=== PATIENT | female | born 1995 | race Two or more races ===

== ENCOUNTER 2017-04-22 18:40 | Inpatient (IN) | payer OTHER ==
[2017-04-22 19:08] VITALS: BMI 32.4
--- NOTE | 2017-04-22 19:33 | PDOC.LDHP ---
Labor and Delivery H&P Chief complaint: other (Patient arrives to L&D for "induction", but was not sent by a physician.) HPI: 21 yo G1 who states she is 41 weeks and 6 days with PNC at [facility] ("[facility] ") who states she came here for induction. She was not scheduled by any MD. Unclear why she left [place] to arrive here. No issues by her report but no record here. No CTX, no VB, no LOF, no Headaches HX Bipolar, anxiety, on no meds. HX "heart surgery" as a child (6 months) with no issues- saw cardiology this by her account. Current gestational age (weeks): 41 (6 days) Due date: 04/09/17 Grav: 1 Para: 0 Abnormal US findings: No (not known) Current medications: pre- vitamins Previous surgical history: other (infact cardiac repair (?)) Allergies/Adverse Reactions: Allergies Allergy/AdvReac Type Severity Reaction Status Date / Time No Known Allergies Allergy Verified 04/22/17 19:10 - Physical Exam Vital signs reviewed and normal: yes (BP 125/75) General: NAD, resting Heart: RRR FHT: category 1 (2 accels, mod variability.) Rafael Capo contractions every: irritability - Plan Plan: other (Assessment: 21 yo with gestation at 41 weeks 6 days by her account , no records here. Hx bipolar- no meds. No acute psch issues now. Plan: 1. all ob labs for our record 2. Attempting to find her clinic chart 3. Check cervix (pending) 4. I will order BPP and OB sono for asessment. As I do not have any of her medical records, I am not sure if induction is valid at this point. Unware of her dating criteria. Will await sono assessment for now.)
[2017-04-22 20:32] LABS: Syphilis Antibody Nonreactive (Nonreactive); Syphilis Antibody Index 0.03 S/CO (<1.00 Non-Reactive)
[2017-04-22] MEDS ORDERED: Lidocaine 1% (PF) 30 ML VIAL SC PRN (21:04)
[2017-04-22] MEDS ORDERED: Ibuprofen 800 MG TAB PO PRN (21:04)
[2017-04-22] MEDS ORDERED: Promethazine HCl 25 MG/ML VIAL IM PRN (21:04)
[2017-04-22] MEDS ORDERED: HYDROcodone/Acetaminophen 5/325 mg Tablet PO PRN ×2 (21:04)
[2017-04-22] MEDS ORDERED: LR / Pitocin 40 units/1000 ml 1,000 ML IV PRN (21:04)
--- NOTE | 2017-04-22 21:12 | PDOC.EVN ---
Event Note - Event Note Event Note: L&D follow up after sono: 2109 INDUCTION NOTE: Spoke with sono tech- EFW 3900, cephalic, Largest pocket 4x2cm. Placenta with small calcifications. BPP was 8. Cephalic. I performed a cervical exam: cervix 03/16/2 Gynecoid pelvis. After detailed review of her care (verbal with patient), she told me she had a first trimester sono which gave her the due date we are using. That would give her sure criteria. I discussed dating criteria with her and as is she 41 weeks and 6 days by that first trimester sono (her report), I dont feel comfortable releasing her home. She states she moved here from [place] and does not have transportaion back to [place]. Therefore, we will admit and give cytotec trial of induction. Strip is cat I now. Plan D/W patient. She farah not know her GBS status. We sent it off but will not give ABX as no risk factors currently and we will await the GBS result. All questions answered. Patient agrees with plan.
[2017-04-22 21:16] LABS: Hemoglobin 12.1 g/dL (12.0-16.0); Mean Corpuscular HGB CONC 32.8 g/dL (32.0-36.0); Mean Corpuscular Hemoglobin 26.9 pg (25.0-35.0); Mean Corpuscular Volume 81.8 fl (77.0-87.0); Platelet Count 259 thou/uL (130-400); Red Blood Cell (RBC) Count 4.49 mill/uL (4.00-5.20)
--- NOTE | 2017-04-22 21:31 | PDOC.EVN ---
Event Note - Event Note Event Note: UDS ordered due to HX of marijuana use before . I dont suspect any use know as she is A&O and cooperative, but will order as protocol.
--- NOTE | 2017-04-22 22:15 | ULT ---
BIOPHYSICAL PROFILE 04/22/17 HISTORY: Post term . FINDINGS: A score of 2 was obtained each for tone, breathing, movements and amniotic fluid vo lume. IMPRESSION: 1. Total biophysical profile score of 8 out of 8. 2. Please see OB ultrasound dictated as a separate report for further details. POS: [facility]
[2017-04-22] MEDS: Lactated Ringer's 1,000 ML IV SCH (22:30)
--- NOTE | 2017-04-22 22:51 | ULT ---
OB ULTRASOUND 04/22/17 HISTORY: Post term , 42 weeks. FINDINGS: There is a single intrauterine gestation in cephalic presentation. Cardiac doppler demonstrates heart tones with a heart rate of 155 beats per minute. The placenta is located in the fundus w ithout evidence of placenta previa. Subjectively there is a decreased amount of amniotic fluid. The amniotic fluid index is also diminish ed measuring 4.1 cm. Visualized portions of the spine, bilateral kidneys, and four chambered heart are visualized on this examination. However, the anatomic structures were no evaluated on this exam. Umbilical cord doppler evaluation obtained at two separate measurements demonstrates umbilical artery peak systolic velocities of 59.2 cm/s and 65.5 cm/s with end diastolic ratio of 26.8 cm/s and 33 cm/ s and systolic to diastolic ratios of 2.21 and 1.98. Total biophysical profile score of 2 was obtained each for movement, breathing, ton e and amniotic fluid volume. MEASUREMENTS: Biparietal diameter 9.4 cm 38 weeks 2 days Head circumference 33.16 cm 37 weeks, 6 days Abdominal circumference 36.01 cm 39 weeks, 6 days Femur length was unable to accurately measured on this exam. The estimated gestational age by ultrasound is 38 weeks and 5 days with an STACIE on 05/01/17. Gestationa l age by last menstrual period is 41 weeks and 6 days. The estimated weight by ultrasound is 3980 grams (8 lb, 12 oz.). IMPRESSION: 1. Oligohydramnios with diminished amniotic fluid index of 4.1 cm. 2. Single intrauterine gestation with heart tones documented. Gestational age by ultrasoun d is 38 weeks and 5 days with STACIE on 05/01/17. 3. Estimated weight is 3980 grams (8 lb, 12 oz.). 4. Total biophysical profile score of 8 out of 8 was obtained. 5. Above findings concerning oligohydramnios were discussed with Dr. Barclay by Adela, the ultras ound technologist at the time of the exam on the hospital floor. POS: [facility]
[2017-04-22] MEDS: Misoprostol 100 MCG TAB VAG SCH (23:20)
[2017-04-23 00:01] LABS: HBSAg Index 0.15 S/CO (0-0.99); HIV (1/2) Antibody/Antigen Non-Reactive (NonReactive); HIV 1/2 INDEX 0.12 S/CO (<1.00); Hep B Surf Ag Non-Reactive S/CO (NonReactive)
[2017-04-23] MEDS: Misoprostol 100 MCG TAB VAG SCH ×3 (04:20→14:56)
[2017-04-23 07:13] LABS: Amphetamine Not Detected (NotDetected); Barbiturates Screen Not Detected (NotDetected); Benzodiazepine Screen Not Detected (NotDetected); Cocaine Metabolite Screen Not Detected (NotDetected); Medtox Control Line Valid? VALID (VALID); Medtox Reader # READER 4; Methadone Not Detected (NotDetected); Methamphetamine Not Detected (NotDetected); Opiate Screen Not Detected (NotDetected); Oxycodone Screen Not Detected (NotDetected); Phencyclidine (PCP) Not Detected (NotDetected); THC/Cannabinoid Screen Not Detected (NotDetected); Tricyclic Screen Not Detected (NotDetected)
[2017-04-23] MEDS ORDERED: Lidocaine 2% MPF 10 ML AMP (For Epidural Use) ONE (11:11)
[2017-04-23] MEDS ORDERED: ePHEDrine/0.9% NaCl/PF SYRINGE 50 mg/10 ml ONE (11:11)
[2017-04-23] MEDS ORDERED: Bupivacaine 0.5% 20 ML, Fentanyl 400 MCG in Sodium Chloride 0.9% 72 ML EPIDURAL SCH (13:45)
[2017-04-23] MEDS ORDERED: DISCONTINUE ALL PREVIOUS NARCOTICS FS SCH (13:45)
[2017-04-23] MEDS: Lactated Ringer's 1,000 ML IV SCH ×2 (14:55→18:33)
--- NOTE | 2017-04-23 15:50 | PDOC.LDPN ---
Labor & Delivery Progress Note - Subjective Subjective: other - Objective Vital signs reviewed and normal: yes General: NAD, resting Uterine fundus: non tender Dilation: 2 Effacement: 25% Station: -2 FHT: category 3, variable decelerations [place] contractions every: 4 Resuscitative measures: maternal oxygen, maternal IV fluids, maternal position change - Assessment (1) Post-term beyond 42 weeks, antepartum Code(s): O48.1 - PROLONGED Current Visit: Yes Status: Acute -: infant not tolerating ctx and le. remote from delivery. will proceed w primary cs
[2017-04-23] MEDS ORDERED: Bicitra 30 ML UDCUP PO SCH (16:00)
[2017-04-23] MEDS ORDERED: CEFAZOLIN/Water 2 GM/20 ML SYRINGE SLOW IVP SCH (16:00)
[2017-04-23] MEDS ORDERED: Morphine PF 1 MG/ML SYR ONE (16:03)
[2017-04-23] MEDS ORDERED: Fentanyl 100 MCG/2 ML VIAL ONE ×2 (16:03→16:45)
[2017-04-23] MEDS ORDERED: Oxytocin 10 UNITS/ML VIAL ONE (16:04)
[2017-04-23] MEDS ORDERED: Ketorolac Tromethamine 30 MG/ML VIAL ONE (16:04)
[2017-04-23] MEDS ORDERED: Ondansetron HCl/PF 4 MG/2 ML Vial ONE (16:04)
[2017-04-23] MEDS ORDERED: Ondansetron HCl/PF 4 MG/2 ML Vial IVP PRN ×5 (16:34→23:45)
[2017-04-23] MEDS ORDERED: Ketorolac Tromethamine 30 MG/ML VIAL IVP PRN ×2 (16:34→23:45)
[2017-04-23] MEDS ORDERED: Promethazine HCl 25 MG SUPP PR PRN ×2 (16:34→23:45)
[2017-04-23] MEDS ORDERED: Eucerin (Mineral Oil/Petrolatum,White) 30 gm Jar TOP PRN ×3 (16:34→23:45)
[2017-04-23] MEDS ORDERED: Meperidine HCl/PF 25 MG/ML VIAL SLOW IVP PRN (16:34)
[2017-04-23] MEDS ORDERED: HYDROmorphone 2 MG/ML VIAL SLOW IVP PRN (16:34)
[2017-04-23] MEDS ORDERED: Naloxone HCl 0.4 mg/ml Vial IVP PRN ×6 (16:34→23:45)
[2017-04-23] MEDS ORDERED: diphenhydrAMINE 50 MG/ML VIAL IVP PRN ×3 (16:34→23:45)
[2017-04-23] MEDS ORDERED: Promethazine HCl 25 MG/ML VIAL IM PRN ×4 (16:34→23:45)
[2017-04-23] MEDS ORDERED: Naloxone HCl 0.4 mg/ml Vial IV PRN ×2 (16:34→23:45)
[2017-04-23] MEDS ORDERED: Communication Order-Pharmacy FS SCH ×3 (16:45→23:45)
[2017-04-23] MEDS ORDERED: Ketorolac Tromethamine 30 MG/ML VIAL IVP SCH (16:45)
[2017-04-23] MEDS ORDERED: Acetaminophen 325 MG TAB PO PRN ×2 (16:56→19:44)
[2017-04-23] MEDS ORDERED: ePHEDrine/0.9% NaCl/PF SYRINGE 50 mg/10 ml SLOW IVP PRN (16:56)
[2017-04-23] MEDS ORDERED: Lactated Ringer's 500 ML IV PRN (16:56)
[2017-04-23] MEDS ORDERED: Fentanyl 4mcg/Marcaine 0.1% Cassette 100 ML EPIDURAL SCH (17:00)
[2017-04-23] MEDS ORDERED: Meperidine HCl/PF 25 MG/ML VIAL ONE (18:19)
[2017-04-23] MEDS ORDERED: Lanolin Ointment 7 GM TUBE TOP PRN (19:44)
[2017-04-23] MEDS ORDERED: LR w/ Pitocin 40 units/1000 ML BAG IV SCH (19:44)
[2017-04-23] MEDS ORDERED: Bisacodyl 10 MG SUPP PR PRN (19:44)
[2017-04-23] MEDS ORDERED: Simethicone Chewable 80 MG TAB PO PRN (19:44)
[2017-04-23] MEDS ORDERED: Adacel (T-DAP) 0.5 ML VIAL IM ONE (19:44)
[2017-04-23] MEDS ORDERED: Lactated Ringer's 1,000 ML IV SCH (19:44)
[2017-04-24] MEDS: diphenhydrAMINE 25 MG CAP PO PRN ×2 (00:43→04:58)
[2017-04-24] MEDS: Ibuprofen 800 MG TAB PO SCH ×4 (04:04→22:45)
[2017-04-24] MEDS: Docusate Calcium (SURFAK) 240 MG CAP PO SCH ×3 (04:12→22:45)
[2017-04-24] MEDS ORDERED: HYDROcodone/Acetaminophen 5/325 mg Tablet PO PRN ×3 (04:45→11:45)
[2017-04-24] MEDS ORDERED: Zolpidem Tartrate 5 MG TAB PO PRN ×2 (04:45→11:45)
[2017-04-24] MEDS ORDERED: Meperidine HCl/PF 25 MG/ML VIAL IM PRN ×2 (04:45→11:45)
[2017-04-24 05:41] LABS: Hemoglobin 9.3 g/dL (12.0-16.0); Mean Corpuscular HGB CONC 32.4 g/dL (32.0-36.0); Mean Corpuscular Hemoglobin 27.4 pg (25.0-35.0); Mean Corpuscular Volume 84.7 fl (77.0-87.0); Mean Platelet Volume 7.7 fL (7.4-10.4); Platelet Count 189 thou/uL (130-400); RBC Distribution Width 13.8 % (11.5-14.5); Red Blood Cell (RBC) Count 3.41 mill/uL (4.00-5.20); White Blood Cell (WBC) Count 12.6 thou/uL (4.8-10.8)
--- NOTE | 2017-04-24 06:04 | OP ---
DATE OF OPERATION: 04/23/2017 PREOPERATIVE DIAGNOSIS: Nonreassuring heart rate tracing remote from delivery. POSTOPERATIVE DIAGNOSIS: Nonreassuring heart rate tracing remote from delivery, meconium stain ed fluid, nuchal cord x1. PROCEDURE PERFORMED: Primary low transverse section without extension. SURGEON: Maxwell Wilson M.D. LOCKER OPERATOR: Marielena Hairston D.O., PGY-3. ANESTHESIA: Epidural, Huey Correa M.D. ESTIMATED BLOOD LOSS: 800 mL. MEDICATIONS: Two grams Ancef preincision. DVT PROPHYLAXIS: SCDs. DRAINS: Asif to gravity. PATHOLOGY SPECIMENS: Placenta. OPERATIVE FINDINGS: 1. Vigorous female , cephalic presentation, 3911 grams, 8 and 9 Apgars, to nursery, Dr Bassam Chapman in attendance. 2. Normal appearing uterus, tubes, and ovaries bilaterally. 3. Hemostasis with clear urine, counts correct at the end of the procedure. DISPOSITION: To the recovery room in good condition. DESCRIPTION OF OPERATIVE PROCEDURE: After obtaining proper informed consent, patient was taken to [facility] operating room where epidural had been to the appropriate level. A Pfannenstiel incision was made through the skin, carried down to the fascia and extended superiorly and laterally with curved Rivera scissors. Rectus dissected off sharply superiorly and inferiorly, divided in the midline, perit oneum entered bluntly, taking care to avoid trauma to the underlying viscera. Zachary O retractor manda eleanor inside. Vesicouterine peritoneal fold identified and low transverse hysterotomy incision made at this level, this was extended superiorly and laterally with finger fractionization. Infant's head e levated through the hysterotomy, rest of the delivered. Cord clamped and cut, and handed off to team in attendance. Usual cord blood sample obtained. Cord gas was not done because of good Apgars. Placenta was removed manually, noted to be meconium stained and sent for pathologic jose a lysis. Uterus was left in situ and hysterotomy was noted to be without extension, was closed using a running locking #1 Monocryl suture x2. Good hemostasis was noted. Gutters were irrigated out. Won nspection of the hysterotomy revealed it to be dry. Zachary 0 retractor was removed. The rectus was inspected and noted to be dry. The fascia reapproximated using running continuous 0 PDS suture. Sub cutaneous tissue irrigated and rendered hemostatic with Bovie cautery, reapproximated using a 2-0 manda in gut and skin reapproximated with shelly. The patient was taken to the recovery room in good cond ition.
--- NOTE | 2017-04-24 08:22 | PRG ---
DATE OF SERVICE: 04/24/2017 TIME OF SERVICE: 07:30 SUBJECTIVE: Patient is postoperative day #1, status post primary section for non-reassuring heart rate tracing at 42 weeks with induction of labor. She has no complaints. Her hematocri t went from 36% to 29%. PHYSICAL EXAMINATION: VITAL SIGNS: Stable, afebrile. Good urine output. GENERAL: The patient is resting comfortably. LUNGS: Clear to auscultation bilaterally. HEART: Regular rhythm. ABDOMEN: Soft and nontender. Her incision is dry and intact. EXTREMITIES: Without clubbing, cyanosis, or edema. IMPRESSION: Doing well, postoperative day #1. PLAN: Anticipate routine post-C section care with probable discharge on 04/26/2017 a.m. versus 04/25 p.m.
[2017-04-24] MEDS: Prenatal Vitamin 1 TAB PO SCH (09:33)
[2017-04-24] MEDS: HYDROcodone/Acetaminophen 5/325 mg Tablet PO PRN (17:12)
[2017-04-25] MEDS: Ibuprofen 800 MG TAB PO SCH ×3 (06:20→21:19)
--- NOTE | 2017-04-25 07:47 | PRG ---
DATE OF SERVICE: 04/25/2017 The patient is now postop day 2 status post a primary for nonreassuring heart tones. The patient is now postoperative day #2. She reports that she is tolerating p.o., voiding on her ow n, having decreased lochia and having decent pain control. PHYSICAL EXAMINATION: VITAL SIGNS: Blood pressure is 124/70, temperature 98.2, pulse is 74, respiratory rate of 20. GENERAL: She appears to be in no acute distress. She is alert and oriented, cooperative and pleasan t to interact with. HEENT: Head is normocephalic, atraumatic. ABDOMEN: Soft. Fundus is firm. Incision is clean, dry, and intact with shelly. EXTREMITIES: Nontender, nonedematous. There is a GBS culture in progress that has not resulted yet. ASSESSMENT AND PLAN: The patient is a 21-year-old postoperative day #2 for a primary for n onreassuring heart tones. Anticipate routine care today with possible discharge tomorrow.
[2017-04-25] MEDS: Docusate Calcium (SURFAK) 240 MG CAP PO SCH ×2 (08:18→21:19)
[2017-04-25] MEDS: Prenatal Vitamin 1 TAB PO SCH (08:18)
[2017-04-25] MEDS: HYDROcodone/Acetaminophen 5/325 mg Tablet PO PRN (22:22)
[2017-04-26] MEDS: Ibuprofen 800 MG TAB PO SCH ×2 (05:55→13:45)
[2017-04-26 08:13] VITALS: BP 93/51; TEMP 98.1
[2017-04-26] MEDS: Prenatal Vitamin 1 TAB PO SCH (09:39)
[2017-04-26] MEDS: Docusate Calcium (SURFAK) 240 MG CAP PO SCH (09:39)
== END 2017-04-26 16:00 | disposition home or self-care (01) | DRG 766 ==
LOC: L&D/OP 18:40 → L&D 21:11 → 3SW 04-23 19:32
PROVIDERS: ADMIT Obstetrics & Gynecology; ATTEND Obstetrics & Gynecology
PROC: 3E0P7VZ Introduction of Hormone into Female Reproductive, Via Natural or Artificial Opening (ICD-10-PCS; 2017-04-22)
PROC: 10D00Z1 Extraction of Products of Conception, Low, Open Approach (ICD-10-PCS; principal; 2017-04-23)
DX: O48.0 Post-term pregnancy (principal); F31.9 Bipolar disorder, unspecified; O69.81X0 Labor and delivery complicated by cord around neck, without compression, not applicable or unspecified; Z37.0 Single live birth; O76 Abnormality in fetal heart rate and rhythm complicating labor and delivery; O77.0 Labor and delivery complicated by meconium in amniotic fluid; O99.344 Other mental disorders complicating childbirth; F41.9 Anxiety disorder, unspecified; Z3A.41 41 weeks gestation of pregnancy
CPT/HCPCS: 36415; 51702; 76805; 76819; 80306; 85027; 86780; 86850; 86900; 86901; 87077; 87081; 87340; 87389; 88307; 90715; 99285; C1726; J0595; J1885; J2001; J2175; J2274; J2405; J2590; J3010; J3490; J7050

== ENCOUNTER 2017-05-01 09:17 | Emergency (ER) | payer OTHER ==
[2017-05-01 10:07] LABS: #Basophils 0.1 thou/uL (0.0-0.2); #Eosinphils 0.2 thou/uL (0.0-0.7); #Lymphocytes 1.9 thou/uL (1.20-3.40); #Monocytes 0.6 thou/uL (0.11-0.59); #Neutrophils 8.7 thou/uL (1.40-6.50); %Basophils 0.7 % (0.0-1.0); %Eosinophils 1.6 % (0.0-10.0); %Lymphocytes 16.4 % (28.0-48.0); %Monocytes 5.6 % (0.0-4.0); %Neutrophils 75.6 % (31.0-61.0); Hemoglobin 10.7 g/dL (12.0-16.0); Mean Corpuscular HGB CONC 31.5 g/dL (32.0-36.0); Mean Corpuscular Hemoglobin 26.8 pg (25.0-35.0); Mean Corpuscular Volume 84.9 fl (77.0-87.0); Mean Platelet Volume 7.2 fL (7.4-10.4); Platelet Count 407 thou/uL (130-400); Red Blood Cell (RBC) Count 3.99 mill/uL (4.00-5.20); White Blood Cell (WBC) Count 11.4 thou/uL (4.8-10.8)
[2017-05-01 10:30] LABS: ALT (SGPT) 8 U/L (8-55); AST (SGOT) 11 U/L (5-30); Albumin 3.2 g/dL (3.5-5.0); Alkaline Phosphatase 83 U/L (40-150); Anion Gap 12 mmol/L (10-20); BUN (Urea Nitrogen) 15 mg/dL (8.4-21.0); Bilirubin, Total 0.5 mg/dL (0.2-1.2); Calc. Creatinine Clearance 0 mL/min (70-130); Calcium 9.2 mg/dL (7.8-10.44); Carbon Dioxide 24 mmol/L (22-29); Chloride 107 mmol/L (98-107); Estimated GFR-MDRD Greater than 90; Globulin 3.1 g/dL (2.4-3.5); Glucose 91 mg/dL (70-105); Lipase 9 U/L (8-78); Potassium 3.8 mmol/L (3.5-5.1); Protein, Total 6.3 g/dL (6.0-8.3); Sodium 139 mmol/L (136-145)
[2017-05-01 11:58] LABS: Bilirubin Negative (Negative); Blood, Urine Large (Negative); Clarity CLEAR (Clear); Glucose, Urine (Dipstick) Negative (Negative); Leukocyte Small (Negative); Nitrite Negative (Negative); Protein, Urine (Dipstick) Negative (Neg-Trace); Specific Gravity, Urine 1.019 (1.002-1.036); pH, Urine 7.5 (5.0-9.0)
[2017-05-01 12:04] LABS: Bacteria/HPF None Seen HPF (None Seen); Hyaline Casts/LPF 0-3 HYALINE CAST LPF (0-3 Hyaline); Pathc Cast-AUWi Flag 0.13 (0-2.49); RBC/HPF 21-50 HPF (0-3); Squamous Epithelial 0-3 HPF (0-3); WBC/HPF 21-50 HPF (0-3)
--- NOTE | 2017-05-01 12:09 | CT ---
CT ABDOMEN AND PELVIS WITH ORAL AND IV CONTRAST: Date: 05/01/17 HISTORY: Abdominal pain, fever, status post 8 days ago. FINDINGS: The lung bases are clear. The liver, spleen, pancreas, adrenal glands, and kidneys are normal. No ashok cified gallstones are seen. The small bowel loops are not abnormally dilated. A normal appearing appe ndix is present. No lymphadenopathy is identified. There are postop changes in the lower anterior abdominal wall and a tiny amount of air in the subcuta neous fat of the right lower quadrant. There is heterogeneity and enlargement of the uterus. A small amount of fluid is seen at the surgical site. No abnormally loculated fluid collection is seen to sug gest abscess formation. No air is seen in the uterus. IMPRESSION: Postop changes. No definite evidence of abscess formation. POS: [facility]
[2017-05-01] MEDS ORDERED: ISOVUE-370 76%-LOCM 1 ML ONE (15:40)
== END 2017-05-01 12:45 | disposition home or self-care (01) ==
LOC: ERS 09:17
DX: O90.89 Other complications of the puerperium, not elsewhere classified (principal); R10.9 Unspecified abdominal pain; G89.18 Other acute postprocedural pain; O86.4 Pyrexia of unknown origin following delivery; O99.345 Other mental disorders complicating the puerperium; F53 Mental and behavioral disorders associated with the puerperium, not elsewhere classified; F41.9 Anxiety disorder, unspecified; Z79.1 Long term (current) use of non-steroidal anti-inflammatories (NSAID)
CPT/HCPCS: 36415; 74177; 80053; 81003; 81015; 83690; 85025; 87040